=== PATIENT | female | born 2000 | race American Indian/Alaskan Native ===

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

== ENCOUNTER 2019-05-03 16:07 | Emergency (ER) | payer MEDICAID, OTHER ==
[2019-05-03 18:18] VITALS: BP 135/78
[2019-05-03] MEDS ORDERED: CYCLOBENZAPRINE 10 MG TAB PO ONE (20:07)
[2019-05-03] MEDS ORDERED: KETOROLAC 30 MG/1 ML INJ IM ONE (20:07)
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
== END 2019-05-03 20:32 | disposition home or self-care (01) ==
LOC: ED 16:07
DX: S39.012A Strain of muscle, fascia and tendon of lower back, initial encounter (principal); R51 Headache; J45.909 Unspecified asthma, uncomplicated; Z79.899 Other long term (current) drug therapy; V49.59XA Passenger injured in collision with other motor vehicles in traffic accident, initial encounter; Y93.89 Activity, other specified; Y92.410 Unspecified street and highway as the place of occurrence of the external cause; Y99.8 Other external cause status
CPT/HCPCS: 96372; 99282; J1885

== ENCOUNTER 2019-06-10 05:44 | Emergency (ER) | payer SELFPAY ==
[2019-06-10] MEDS ORDERED: MORPHINE 4 MG/1 ML INJ IM ONE (09:26)
[2019-06-10] MEDS ORDERED: ONDANSETRON 4 MG/2 ML INJ IM ONE (09:26)
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
[2019-06-10 10:06] LABS: Bilirubin,Urine NEG (Negative); Blood,Urine NEG (Negative); Color,Urine Yellow (Yellow); Mucus,Urine 3+ /HPF; Protein,Urine <15 mg/dL mg/dL (Negative); Urobilinogen,Urine < 2.0 mg/dL (<2.0)
[2019-06-10 10:09] LABS: HCG Qualitative,Urine Negative (Negative)
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
[2019-06-10 11:31] VITALS: BP 97/53
== END 2019-06-10 11:31 | disposition home or self-care (01) ==
LOC: ED 05:44
DX: S39.012A Strain of muscle, fascia and tendon of lower back, initial encounter (principal); R51 Headache; J45.909 Unspecified asthma, uncomplicated; Z98.890 Other specified postprocedural states; V49.59XA Passenger injured in collision with other motor vehicles in traffic accident, initial encounter; Y93.89 Activity, other specified; Y92.410 Unspecified street and highway as the place of occurrence of the external cause; Y99.8 Other external cause status
CPT/HCPCS: 70450; 72131; 81001; 81025; 96372; 99284; J2270; J2405